=== PATIENT | female | born 1985 | race African-American/Black ===

== ENCOUNTER 2019-05-22 19:26 | Emergency (ER) | payer MEDICAID, OTHER ==
[~2019-05-22] VITALS: Ht 154.9 cm; Wt 70.8 kg
[2019-05-22 20:05] VITALS: BP 118/74
--- NOTE | 2019-05-22 20:05 | NUR ---
ED Nurse Note: Patient walked in to ER c/o flu like symptoms. Stated that had headache, sore throat since yesterday. AAO x4, VSS at this time, skin is dry warm to touch.
[2019-05-22] MEDS ORDERED: IBUPROFEN600 MG ORAL (20:13)
--- NOTE | 2019-05-22 20:24 | Emergency Room Report ---
History of Present Illness General Chief Complaint: Flu Like Symptoms Source: Patient, Medical Record Present Illness HPI 33-year-old female complaining of tactile fever, body aches, dry cough for the past 2 to 3 days. Pain is 6/10, sore in quality. Denies shortness of breath, chest pain, vomiting, diarrhea, abdominal pain, rash. Denies recent travel. Denies sick contacts. Good appetite. Allergies: Coded Allergies: No Known Allergies (Unverified , 05/22/19) Patient History Past Medical History: none Past Surgical History: none Social History: Reports: smoking, alcohol use Last Menstrual Period: 04/2019 Now: No - Unknown : 2 Para: 2 Review of Systems All Other Systems: negative except mentioned in HPI Physical Exam Vital Signs Date Time Temp Pulse Resp B/P (MAP) Pulse Ox O2 Delivery O2 Flow Rate FiO2 05/22/19 19:55 99.5 104 18 118/74 (89) 96 Room Air Sp02 EP Interpretation: reviewed, normal General Appearance: no apparent distress, alert, GCS 15, non-toxic Eyes: bilateral eye normal inspection, bilateral eye PERRL ENT: hearing grossly normal, normal pharynx, normal voice, TMs + canals normal , moist mucus membranes Respiratory: chest non-tender, lungs clear, normal breath sounds, speaking full sentences Gastrointestinal: non tender, soft Neurologic: alert, oriented x3, responsive, motor strength/tone normal, sensory intact, speech normal Medical Decision Making PA Attestation This patient was seen under the direct supervision of [Dr. Smiley] who directed all aspects of care and diagnostic interpretation. Diagnostic Impression: Primary Impression: Viral syndrome ER Course ED course HPI: 33-year-old female complaining of tactile fever, body aches, dry cough for the past 2 to 3 days. Pain is 6/10, sore in quality. Denies shortness of breath, chest pain, vomiting, diarrhea, abdominal pain, rash. Denies recent travel. Denies sick contacts. Good appetite. Ddx: influenza vs. pneumonia vs. URI HPI & PE consistent with: Viral infection Orders/ Interventions: None. Benign physical exam. Vitals are stable, afebrile. Discussed with patient symptoms likely viral in etiology. No antibiotics are indicated at this time. Patient agreed with ER course and disposition. Disposition: Patient stable for discharge home. Prescription for ibuprofen given. Supportive care. Increase oral hydration. Follow-up with PCP in 2 days or return to ED if worsening symptoms, new symptoms , or sudden change in your condition. Please note that this Emergency Department Report was dictated using [employer] emergency technology software, occasionally this can lead to erroneous entry secondary to interpretation by the dictation equipment. Last Vital Signs Date Time Temp Pulse Resp B/P (MAP) Pulse Ox O2 Delivery O2 Flow Rate FiO2 05/22/19 20:05 104 18 Room Air 05/22/19 20:05 99.5 118/74 96 Status: unchanged Disposition: HOME, SELF-CARE Condition: Stable Scripts Ibuprofen* (MOTRIN*) 600 Mg Tablet 600 MG ORAL Q8H PRN for For Pain, #20 TAB 0 Refills Prov: Piotr Fleming 05/22/19 Patient Instructions: Viral Respiratory Infection, [id number] Additional Instructions: Rx for ibuprofen given. Supportive care. Increase oral hydration. Followup with PCP in 2 days or return to ED if worsening symptoms, new symptoms , or sudden change in condition. Piotr Fleming May 22, 2019 20:24
[2019-05-22 20:27] VITALS: BP 118/74
--- NOTE | 2019-05-22 20:27 | NUR ---
ED Nurse Note: Pt cleared by health care Provider for discharge. DC instructions/prescription was given and explained to pt and verbalized understanding of teachings. All medical deviecs such as ID band removed. Pt is AAO x4, ambulatory and left with all personal belongings.
== END 2019-05-22 21:00 | disposition home or self-care (01) ==
LOC: EMR 20:35
DX: B34.9 Viral infection, unspecified (principal); F17.200 Nicotine dependence, unspecified, uncomplicated
CPT/HCPCS: 99282